=== PATIENT | female | born 1965 | race Hispanic/Latino ===

== ENCOUNTER 2024-03-20 05:11 | Emergency (ER) | payer BC, OTHER ==
[~2024-03-20] VITALS: Ht 165.1 cm; Wt 107.5 kg
[2024-03-20] MEDS: 0.9%NACL 1000ML 1,000 ML IV ONE (05:20)
[2024-03-20 05:33] LABS: BASOPHILS # (AUTO) 0.02 K/uL (0.00-0.20); BASOPHILS % (AUTO) 0.2 % (0.0-5.0); EOSINOPHILS # (AUTO) 0.18 K/uL (0.00-0.70); EOSINOPHILS % (AUTO) 2.2 % (0.0-8.0); HEMATOCRIT 44.1 % (36-48); IMMATURE GRANULOCYTE ABSOLUTE 0.02 K/uL (0-1); LYMPHOCYTES # (AUTO) 2.3 K/uL (1.0-4.8); LYMPHOCYTES % (AUTO) 27.3 % (21.0-51.0); MEAN CORPUSCULAR HEMOGLOBIN 31.7 pg (27.0-33.0); MEAN CORPUSCULAR HGB CONC 34.5 g/dL (32.0-36.0); MEAN CORPUSCULAR VOLUME 91.9 fL (79-99); MONOCYTES # (AUTO) 0.8 K/uL (0.1-1.0); MONOCYTES % (AUTO) 9.6 % (3.0-13.0); NEUTROPHILS % (AUTO) 60.5 % (40.0-77.0); PLATELET COUNT (AUTO) 272 K/uL (130-400); RED CELL DISTRIBUTION WIDTH 12.7 % (11.0-15.5); WHITE BLOOD COUNT (AUTO) 8.3 K/uL (4.8-10.8)
[2024-03-20 06:06] LABS: ALBUMIN 3.8 g/dL (3.5-5.0); BILIRUBIN,TOTAL 0.3 mg/dL (0.2-1.0); POTASSIUM 3.9 mmol/L (3.5-5.1); TOTAL PROTEIN, SERUM 8.2 g/dL (6.0-8.3)
[2024-03-20 08:18] LABS: APPEARANCE,URINE CLEAR (CLEAR); BILIRUBIN,URINE NEGATIVE (NEGATIVE); COLOR,URINE COLORLESS (YELLOW); GLUCOSE, URINE (UA) NEGATIVE (NEGATIVE); KETONES,URINE NEGATIVE (NEGATIVE); LEUKOCYTE ESTERASE ,URINE NEGATIVE Leu/uL (NEGATIVE); NITRATE,URINE NEGATIVE (NEGATIVE); OCCULT BLOOD,URINE NEGATIVE (NEGATIVE); PH,URINE 5.5 (5.0-8.0); PROTEIN,URINE NEGATIVE (NEGATIVE); UROBILINOGEN,URINE 0.2 mg/dL (0.2-1.0)
[2024-03-20 08:27] LABS: ADD UA MICROSCOPIC NO
[2024-03-20 09:45] VITALS: BP 124/70; PULSE 72; RESP 16; O2SAT 99
== END 2024-03-20 09:55 | disposition home or self-care (01) ==
LOC: EDH 05:11
DX: I12.9 Hypertensive chronic kidney disease with stage 1 through stage 4 chronic kidney disease, or unspecified chronic kidney disease (principal); E11.22 Type 2 diabetes mellitus with diabetic chronic kidney disease; N18.30 Chronic kidney disease, stage 3 unspecified; E87.1 Hypo-osmolality and hyponatremia; R19.7 Diarrhea, unspecified; E86.0 Dehydration
CPT/HCPCS: 99284; 74176; 96360; 80053; 83690; 85025; 87040 ×2; 83605; 81003; 36415; J7030

== ENCOUNTER 2024-07-27 06:22 | Day surgery (SDC) | payer BC ==
[2024-07-26 09:20] VITALS: BP 143/78; PULSE 61; RESP 18; TEMP 97.7
[2024-07-26 09:46] LABS: BASOPHILS # (AUTO) 0.04 K/uL (0.00-0.20); BASOPHILS % (AUTO) 0.6 % (0.0-5.0); EOSINOPHILS # (AUTO) 0.15 K/uL (0.00-0.70); EOSINOPHILS % (AUTO) 2.4 % (0.0-8.0); HEMATOCRIT 41.6 % (36-48); IMMATURE GRANULOCYTE ABSOLUTE 0.02 K/uL (0-1); LYMPHOCYTES # (AUTO) 1.2 K/uL (1.0-4.8); LYMPHOCYTES % (AUTO) 20.1 % (21.0-51.0); MEAN CORPUSCULAR HEMOGLOBIN 32.3 pg (27.0-33.0); MEAN CORPUSCULAR HGB CONC 33.7 g/dL (32.0-36.0); MEAN CORPUSCULAR VOLUME 95.9 fL (79-99); MONOCYTES # (AUTO) 0.4 K/uL (0.1-1.0); MONOCYTES % (AUTO) 6.6 % (3.0-13.0); NEUTROPHILS # (AUTO) 4.3 K/uL (1.8-7.7); PLATELET COUNT (AUTO) 225 K/uL (130-400); RED BLOOD CELL COUNT(AUTO) 4.34 MIL/uL (4.00-5.50); RED CELL DISTRIBUTION WIDTH 12.5 % (11.0-15.5); WHITE BLOOD COUNT (AUTO) 6.2 K/uL (4.8-10.8)
[~2024-07-27] VITALS: Ht 165.1 cm; Wt 102.4 kg
[2024-07-27] VITALS (19 sets, daily range): BP systolic 110–146; BP diastolic 60–84; PULSE 69–82; RESP 10–21; TEMP 96.4–98
[~2024-07-27 06:22] MED LIST: CETI10CA5 PO; ERGO500093 PO; FLUT16H NS; LEFL10TA19 PO; LEVO150C4 PO; LOSA25TA41 PO; SECU150P SQ; SEMA1PEN3 SQ; SPIR50TA5 PO
[2024-07-27] MEDS: metRONIDazole 500MG/100ML BAG 100 ML ONE (07:10)
[2024-07-27] MEDS: ceFAZolin SODIUM 2 GM VIAL ONE (07:10)
[2024-07-27] MEDS: SCOPOLAMINE HYDROBROMIDE 1 EACH ADH..PATCH TD ONE (07:11)
[2024-07-27] MEDS: dexaMETHasone SOD PHOSPHATE 4 MG/ML 1ML VIAL ONE (07:11)
[2024-07-27] MEDS ORDERED: dexaMETHasone SOD PHOSPHATE 10MG/ML 1ML VIAL ONE (07:11)
[2024-07-27] MEDS ORDERED: LIDOCAINE PF 100MG/5ML (2%) SYRINGE 5ML ONE (07:11)
[2024-07-27] MEDS: PHENAZOpyridine HCL 200 MG TAB 200 MG TABLET ONE (07:11)
[2024-07-27] MEDS ORDERED: FENTanyl CITRate PF 50 MCG/1 ML 2ML VIAL ONE ×2 (07:12→08:21)
[2024-07-27] MEDS ORDERED: rocuRONium bROMide 10MG/1ML 5ML VL ONE (07:12)
[2024-07-27] MEDS ORDERED: ondanSETRON 4MG INJ ONE ×2 (07:12→07:59)
[2024-07-27] MEDS ORDERED: NEOSTIGMINE METHYLSULFATE 1MG/ML IV ONE (07:12)
[2024-07-27] MEDS ORDERED: SUCCINYLCHOLINE CHLORIDE 20 MG/ML 10 ML VIAL ONE (07:12)
[2024-07-27] MEDS ORDERED: GLYCOPYRROLATE 0.2 MG/ML 5 ML VIAL ONE (07:12)
[2024-07-27] MEDS ORDERED: proPOFol 10 MG/ML 20ML VIAL IV ONE (07:12)
[2024-07-27] MEDS ORDERED: MIDAZOLAM HCL 1 MG/ML 2ML VIAL ONE (07:12)
[2024-07-27] MEDS: 0.9%NACL 1000ML 1,000 ML IV ONE (07:12)
[2024-07-27] MEDS ORDERED: phenylEPHRINE HCL 10 MG/ML 1ML VIAL IV ONE (07:19)
[2024-07-27] MEDS ORDERED: BUPIvacaine/PF 0.25% 30ML VIAL IJ ONE (07:20)
[2024-07-27] MEDS ORDERED: LIDOCAINE 1%-EPI 1:100,000 20 ML VIAL ONE (07:20)
[2024-07-27] MEDS ORDERED: ESTROGENS,CONJUGATED 0.625 MG/GM 42.5 GM VAG CRM VG ONE (07:21)
[2024-07-27] MEDS: ceFAZolin SODIUM 2 GM VIAL IVPB ONE (08:05)
[2024-07-27] MEDS ORDERED: FENTanyl CITRate PF 50 MCG/1 ML 5ML AMP IV ONE (08:40)
[2024-07-27] MEDS: BUPIvacaine/PF 0.25% 30ML VIAL IJ ONE (09:10)
[2024-07-27] MEDS ORDERED: NOREPINEPHRINE BITARTRATE 1 MG/1 ML ML IV ONE (09:57)
--- NOTE | 2024-07-27 10:26 | OP ---
Operative Note: DATE OF PROCEDURE: 07/27/24 SURGEON: AMANDA JOHNSON MD SWITCHBOARD INSTALLER: [none] ANESTHESIA: [general] ANESTHESIOLOGIST/SKIDDER LEVER OPERATOR: [general] PREOPERATIVE DIAGNOSIS: [postmenopausal bleeding] POSTOPERATIVE DIAGNOSIS: [same] SYNOPSIS: [n/a] PROCEDURE: [daVinci Total Laparoscopic Hysterectomy Bilateral Salpingoopherectomy, Cysto] ESTIMATED BLOOD LOSS: [minimal] INDICATIONS: [N/A] DESCRIPTION OF PROCEDURE: [The patient and her mother were visited in the holding area and the planned operation wasstated in plain Russian and the patient had no new questions and was ready to proceed. She was taken to the operating room and placed under general anesthesia and prepped and draped in the normal sterile fashion in the [place] stir[place]. A time out was taken to state the patient's identity, the planned operation, her allergies and medication administration. A right angle retractor was placed in the vagina and the cervix was identified, the anterior lip was grasped with single tooth tenaculum and uterus sounded about 8 cm, the large v-care manipulator was sutured into place and a medeiros cath was placed which drained clear urine. The surgeon's gloves were changed, the patient was placed flat and stomach decompression was confirmed. Infiltration of 0.25% marcaine in the left midclavicular line about 2 cmfrom the costal margin was carried out, an 8 mm incision was made and the long veress needle was placed and intraperitoneal placement was confirmed with sterile saline and the drop test and the abdomen was insufflated to a good dome of co2. Theveress needle was removed and thedirect visualization davinci trocar camera and sleeve were introduced, intraperitoneal placement was confirmed and no trauma was noted, the patient was placed in trendelenberg position and brought out just until the small bowel would stay out of the pelvis, the rectosigmoid was redundant and did not move out of the pelvis. Infiltration, incision and placement of a midline air seal and right sided davinci trocar were carried out under direct visualization atraumatically and new closes were placed at all sites, the robot was docked and the fenestrated bipolar and vessel sealer were placed, first the left tube and then ovary were tented up well away from the pelvic brim and with care to avoid the redundant bowel and they were cauterized and divided, due to the bowel, the ovary was removed separate from the uterus, and serial vessel sealing was performed down the left side of the uterus to about 3/4 down, and a similar procedure excising the ovary with the tube and still attached to the uterus was carried out on the other side, the bladder flap was created and advanced and the posterior peritoneum was incisedpast the level of the manipulator, the bladder was dissected free mostly bluntly and with some monopolar cautery and the uterine arteries were skeletonized, and the vagina was incised and the v lock suture was placed at the vaginal angles to avoid difficulty due tothe redundant bowel. the uterus was then amputated and brought out the vagina as well as the ovary, the area was irrigated andthen the cuff was closed with the suture and t wo additional figure of 8 imbricating sutures of 2-0 pds were placed for support of the area, and the area was again irrigated and all was hemostatis, the needles were brought out of the abodmen, the abdomen was desufflated and the robot undocked, cystoscopy was performed with normal bladder interior and normal utereral orifices effluxing strong jets of yellowish urine. The sleeves were removed and the hadley closes tied and the incisionswere closed subcuticularly and dermabond was placed. The patient tolerated the procedure well, sponge, lap and needle counts were correct at the end and the patient was taken to the recovery room in stable condition, and avoicemail was left for her mother advising she was stable. Amanda Johnson md facog facs ] AMANDA JOHNSON MD Jul 27, 2024 10:26
--- NOTE | 2024-07-27 13:14 | NUR ---
C/O ABDOMINAL PAIN, MORPHINE 5 MG IM GIVEN PER DR. JOHNSON WRITTEN ORDERS
== END 2024-07-27 14:05 | disposition home or self-care (01) ==
LOC: SUH 06:22 → DAH 06:22 → SUH 14:05
PROVIDERS: ATTEND Obstetrics & Gynecology
DX: N95.0 Postmenopausal bleeding (principal); N84.0 Polyp of corpus uteri; N72 Inflammatory disease of cervix uteri; G47.33 Obstructive sleep apnea (adult) (pediatric); I12.9 Hypertensive chronic kidney disease with stage 1 through stage 4 chronic kidney disease, or unspecified chronic kidney disease; E11.22 Type 2 diabetes mellitus with diabetic chronic kidney disease; N18.30 Chronic kidney disease, stage 3 unspecified; L40.50 Arthropathic psoriasis, unspecified; E03.9 Hypothyroidism, unspecified; Z79.899 Other long term (current) drug therapy
CPT/HCPCS: 84703; 85025; 86850; 86900; 86901; 36415; 58571; 82948 ×2; 88307; 88342; 88341; A6260; J1100 ×2; A4663; J7030 ×2; A4344; A4215 ×2; J3010 ×3; J3490 ×4; J0330; J0665 ×2; J2003; J2250; J2704; J2405 ×2; J2710; J2371; J2270; J0690 ×2; A4649; A4930; A4213; A4222; A4221; A4510; A4600 ×2; A4223 ×2; S2900